=== PATIENT | male | born 1995 | race African-American/Black ===

== ENCOUNTER 2019-01-21 09:53 | Emergency (ER) | payer MEDICAID ==
[~2019-01-21] VITALS: Ht 190.5 cm; Wt 103.2 kg
[2019-01-21 09:59] VITALS: BP 161/74; PULSE 86; RESP 18; Ht 190.5 cm; Wt 103.2 kg
--- NOTE | 2019-01-21 10:05 | ERD ---
ER Documentation Chief Complaint Chief Complaint R thumb pain & swelling since yesterday HPI 23-year-old male, previously healthy, presents to the emergency department, complaining of pain and edema of the right thumb that started yesterday, the patient denies fever, no chills. No medications taken at this time. ROS All systems reviewed and are negative except as per history of present illness. Medications Home Meds Active Scripts Ibuprofen* (Motrin*) 400 Mg Tab, 400 MG PO Q6H PRN for PAIN AND OR ELEVATED TEMP, #12 TAB Prov:MARLO CARPIO MD 01/21/19 Cephalexin* (Keflex*) 500 Mg Capsule, 500 MG PO BID for 3 Days, CAP Prov:MARLO CARPIO MD 01/21/19 Allergies Allergies: Coded Allergies: No Known Allergy (Unverified , 01/21/19) FmHx Family History: No diabetes, No coronary disease Physical Exam Vitals Vital Signs Date Temp Pulse Resp B/P (MAP) Pulse Ox O2 O2 Flow FiO2 Time Delivery Rate 01/21/19 97.9 86 18 161/74 97 09:59 (103) Physical Exam Const: No acute distress Head: Atraumatic Eyes: Normal Conjunctiva ENT: Normal External Ears, Nose and Mouth. Neck: Full range of motion. No meningismus. Resp: Clear to auscultation bilaterally Cardio: Regular rate and rhythm, no murmurs Abd: Soft, non tender, non distended. Normal bowel sounds Skin: No petechiae or rashes Back: No midline or flank tenderness Ext: Right thumb with lateral periungual erythema and fluctuance, no cyanosis, or edema Neur: Awake and alert Psych: Normal Mood and Affect Procedures/MDM Differential diagnosis include but not limited to: Insect bite, traumatic injury, herpetic mynor, dermoid cyst. Low suspicion for acute systemic infection. Physical examination and clinical presentation consistent most likely with paronychia of right thumb During the ED course the patient remained stable, no new complaints. Paronychia I&D The procedure was explained and consent obtained. The area was cleaned with iodine. A sterile drape and prep were done. The fluctuant area around the nail, was excised with an 18-gauge needle obtaining moderate amount of pus, the area was expressed and irrigated with normal saline. Antibiotic ointment was applied. The patient tolerated the procedure well. The patient is stable to be treated outpatient and will be discharged home with a Rx for cephalexin for 3 days, some side effects of prescribed medications (he adache, rash, nausea, vomiting, diarrhea, drowsiness, habituation, bleeding, hypertension, interactions with other medications) were reviewed. The patient was instructed to follow up with the primary care provider in the next 48h. If symptoms persist, worsen or new symptoms develop, then patient should return to the ED immediately. Instructions explained and given directly by me to the patient with acknowledgment and demonstrated understanding. Disclaimer: Inadvertent spelling and grammatical errors are likely due to EHR/dictation software use and do not reflect on the overall quality of patient care. Also, please note that the electronic time recorded on this note does not necessarily reflect the actual time of the patient encounter. Departure Diagnosis: Primary Impression: Paronychia of thumb, right Condition: Stable Additional Instructions: Thank you very much for allowing us to participate in your care. Your health and safety is our top priority at [facility]. The evaluation in the emergency department has been done to rule out an acute emergency, therefore, chronic conditions like malignancy or other diseases have not been evaluated; therefore, you need to follow up with a primary care provider in the next 48h. If symptoms persist, worsen or new symptoms develop, then patient should return to the ED immediately. Call your primary care doctor TOMORROW for an appointment during the next 2-4 days and bring all the information provided. Have prescriptions filled and follow precisely the directions on the label. If the symptoms get worse and your provider is unavailable, return to the Emergency Department immediately. MARLO CARPIO MD Jan 21, 2019 10:05
[2019-01-21] MEDS ORDERED: CEPH-443 PO (10:34)
[2019-01-21] MEDS ORDERED: IBUP-1561 PO (10:36)
== END 2019-01-21 11:09 | disposition home or self-care (01) ==
LOC: FTE 09:53
DX: L03.011 Cellulitis of right finger (principal)
CPT/HCPCS: 26010; Z7502